=== PATIENT | male | born 1995 | race Caucasian/White ===

== ENCOUNTER 2018-03-01 16:09 | Emergency (ER) | payer BC ==
[2018-03-01 16:23] VITALS: BP 110/56
--- NOTE | 2018-03-01 16:24 | EDM.PDOC ---
ED HPI GENERAL MEDICAL PROBLEM - General Chief Complaint: Respiratory Problem Stated Complaint: COUGH,STUFFY NOSE Time Seen by Provider: 03/01/18 16:17 - History of Present Illness INITIAL COMMENTS - FREE TEXT/NARRATIVE: HISTORY AND PHYSICAL: History of present illness: Patient 22-year-old white male gentleman with concern of cough congestion cold symptoms over the last week he's concerned about possible influenza utters no fever chills nausea vomiting he is a smoker. Review of systems: As per history of present illness and below otherwise all systems reviewed and negative. Past medical history: As per history of present illness and as reviewed below otherwise noncontributory. Surgical history: As per history of present illness and as reviewed below otherwise noncontributory. Social history: No reported history of drug or alcohol abuse. Family history: As per history of present illness and as reviewed below otherwise noncontributory. Physical exam: HEENT: Atraumatic, normocephalic, pupils reactive, negative for conjunctival pallor or scleral icterus, mucous membranes moist, throat clear, neck supple, nontender, trachea midline. Lungs: Clear to auscultation, breath sounds equal bilaterally, chest nontender. Heart: S1S2, regular, negative for clicks, rubs, or JVD. Abdomen: Soft, nondistended, nontender. Negative for masses or hepatosplenomegaly. Negative for costovertebral tenderness. Pelvis: Stable nontender. Genitourinary: Deferred. Rectal: Deferred. Extremities: Atraumatic, negative for cords or calf pain. Neurovascular unremarkable. Neuro: Awake, alert, oriented. Cranial nerves II through XII unremarkable. Cerebellum unremarkable. Motor and sensory unremarkable throughout. Exam nonfocal. Diagnostics: Influenza screen Therapeutics: None Impression: #1 viral syndrome Definitive disposition and diagnosis as appropriate pending reevaluation and review of above. - Related Data Allergies Allergy/AdvReac Type Severity Reaction Status Date / Time No Known Allergies Allergy Verified 03/01/18 16:21 Home Meds: Home Meds . [No Known Home Meds] 03/01/18 [History] Past Medical History - Past Health History Medical/Surgical History: Denies Medical/Surgical History HEENT History: Reports: None Cardiovascular History: Reports: None Respiratory History: Reports: None Gastrointestinal History: Reports: None Genitourinary History: Reports: None Musculoskeletal History: Reports: None Neurological History: Reports: None Psychiatric History: Reports: None Endocrine/Metabolic History: Reports: None Hematologic History: Reports: None Immunologic History: Reports: None Oncologic (Cancer) History: Reports: None Dermatologic History: Reports: None - Infectious Disease History Infectious Disease History: Reports: None - Past Surgical History Head Surgeries/Procedures: Reports: None Social & Family History - Family History Family Medical History: Noncontributory - Caffeine Use Caffeine Use: Reports: Coffee, Energy Drinks ED ROS GENERAL - Review of Systems Review Of Systems: ROS reveals no pertinent complaints other than HPI. ED EXAM, GENERAL - Physical Exam Exam: See Below (The dictation) Course - Orders/Labs/Meds Orders: Active Orders 24 hr Category Date Time Status INFLUENZA A+B AG SCREEN [RM] Stat Lab 03/01/18 16:19 Ordered Departure - Departure Time of Disposition: 16:23 Disposition: Home, Self-Care 01 Condition: Good Clinical Impression: Viral syndrome - Discharge Information Additional Instructions: The following information is given to patients seen in the emergency department who are being discharged to home. This information is to outline your options for follow-up care. We provide all patients seen in our emergency department with a follow-up referral. The need for follow-up, as well as the timing and circumstances, are variable depending upon the specifics of your emergency department visit. If you don't have a primary care physician on staff, we will provide you with a referral. We always advise you to contact your personal physician following an emergency department visit to inform them of the circumstance of the visit and for follow-up with them and/or the need for any referrals to a consulting specialist. The emergency department will also refer you to a specialist when appropriate. This referral assures that you have the opportunity for followup care with a specialist. All of these measure are taken in an effort to provide you with optimal care, which includes your followup. Under all circumstances we always encourage you to contact your private physician who remains a resource for coordinating your care. When calling for followup care, please make the office aware that this follow-up is from your recent emergency room visit. If for any reason you are refused follow-up, please contact the [facility] emergency department at and asked to speak to the emergency department charge nurse. [facility] [address] [place] [id number] Push fluids Motrin/Tylenol as directed follow up primary medical doctor in our clinic above as needed as discussed and return as needed as discussed - My Orders Last 24 Hours: My Active Orders 03/01/18 16:19 INFLUENZA A+B AG SCREEN [RM] Stat - Assessment/Plan Last 24 Hours: My Active Orders 03/01/18 16:19 INFLUENZA A+B AG SCREEN [RM] Stat
== END 2018-03-01 17:33 | disposition home or self-care (01) ==
LOC: MW.ED 16:09
DX: B34.9 Viral infection, unspecified (principal)
CPT/HCPCS: 87804; 99282; 99283

== ENCOUNTER 2018-09-24 16:53 | Emergency (ER) | payer SELFPAY ==
[2018-09-24 17:16] VITALS: BP 114/65
[2018-09-24] MEDS ORDERED: Ketorolac 60 MG/2 ML SDV IM ONE (17:18)
--- NOTE | 2018-09-24 17:21 | EDM.PDOC ---
ED HPI GENERAL MEDICAL PROBLEM - General Chief Complaint: Headache Stated Complaint: HEADACHE Time Seen by Provider: 09/24/18 17:14 - History of Present Illness INITIAL COMMENTS - FREE TEXT/NARRATIVE: HISTORY AND PHYSICAL: History of present illness: Patient's 22-year-old white male presents with concern headache he denies trauma fever chills neck stiffness or pain visual disturbance or other complaints. Review of systems: As per history of present illness and below otherwise all systems reviewed and negative. Past medical history: As per history of present illness and as reviewed below otherwise noncontributory. Surgical history: As per history of present illness and as reviewed below otherwise noncontributory. Social history: No reported history of drug or alcohol abuse. Family history: As per history of present illness and as reviewed below otherwise noncontributory. Physical exam: HEENT: Atraumatic, normocephalic, pupils reactive, negative for conjunctival pallor or scleral icterus, mucous membranes moist, throat clear, neck supple, nontender, trachea midline. Lungs: Clear to auscultation, breath sounds equal bilaterally, chest nontender. Heart: S1S2, regular, negative for clicks, rubs, or JVD. Abdomen: Soft, nondistended, nontender. Negative for masses or hepatosplenomegaly. Negative for costovertebral tenderness. Pelvis: Stable nontender. Genitourinary: Deferred. Rectal: Deferred. Extremities: Atraumatic, negative for cords or calf pain. Neurovascular unremarkable. Neuro: Awake, alert, oriented. Cranial nerves II through XII unremarkable. Cerebellum unremarkable. Motor and sensory unremarkable throughout. Exam nonfocal. Diagnostics: None Therapeutics: Toradol 60 mg IM Impression: #1 cephalgia Definitive disposition and diagnosis as appropriate pending reevaluation and review of above. Headache Pain Score (Numeric/FACES): 9 - Related Data Allergies Allergy/AdvReac Type Severity Reaction Status Date / Time No Known Allergies Allergy Verified 09/24/18 17:12 Home Meds: Home Meds . [No Known Home Meds] 03/01/18 [History] Past Medical History - Past Health History Medical/Surgical History: Denies Medical/Surgical History HEENT History: Reports: None Cardiovascular History: Reports: None Respiratory History: Reports: None Gastrointestinal History: Reports: None Genitourinary History: Reports: None Musculoskeletal History: Reports: None Neurological History: Reports: None Psychiatric History: Reports: None Endocrine/Metabolic History: Reports: None Hematologic History: Reports: None Immunologic History: Reports: None Oncologic (Cancer) History: Reports: None Dermatologic History: Reports: None - Infectious Disease History Infectious Disease History: Reports: None - Past Surgical History Head Surgeries/Procedures: Reports: None Social & Family History - Family History Family Medical History: Noncontributory - Tobacco Use Smoking Status *Q: Current Every Day Smoker Years of Tobacco use: 5 Packs/Tins Daily: 1 - Caffeine Use Caffeine Use: Reports: Coffee, Soda - Recreational Drug Use Recreational Drug Use: No ED ROS GENERAL - Review of Systems Review Of Systems: ROS reveals no pertinent complaints other than HPI. ED EXAM, GENERAL - Physical Exam Exam: See Below (See dictation) Course - Vital Signs Last Recorded V/S: Last Vital Signs Temp Pulse 84 09/24/18 17:12 Resp 17 09/24/18 17:12 BP 114/65 09/24/18 17:12 Pulse Ox 96 09/24/18 17:12 - Orders/Labs/Meds Orders: Active Orders 24 hr Category Date Time Status Ketorolac [Toradol] Med 09/24/18 17:18 Once 60 mg IM ONETIME ONE Departure - Departure Time of Disposition: 17:19 Disposition: Home, Self-Care 01 Condition: Good Clinical Impression: Cephalgia - Discharge Information Referrals: PCP,Unknown [Primary Care Provider] - Additional Instructions: The following information is given to patients seen in the emergency department who are being discharged to home. This information is to outline your options for follow-up care. We provide all patients seen in our emergency department with a follow-up referral. The need for follow-up, as well as the timing and circumstances, are variable depending upon the specifics of your emergency department visit. If you don't have a primary care physician on staff, we will provide you with a referral. We always advise you to contact your personal physician following an emergency department visit to inform them of the circumstance of the visit and for follow-up with them and/or the need for any referrals to a consulting specialist. The emergency department will also refer you to a specialist when appropriate. This referral assures that you have the opportunity for followup care with a specialist. All of these measure are taken in an effort to provide you with optimal care, which includes your followup. Under all circumstances we always encourage you to contact your private physician who remains a resource for coordinating your care. When calling for followup care, please make the office aware that this follow-up is from your recent emergency room visit. If for any reason you are refused follow-up, please contact the [facility] emergency department at and asked to speak to the emergency department charge nurse. [facility] [address] [place] [phone] Follow-up primary care above. Motrin/ Tylenol as directed return as needed as discussed - My Orders Last 24 Hours: My Active Orders 09/24/18 17:18 Ketorolac [Toradol] 60 mg IM ONETIME ONE - Assessment/Plan Last 24 Hours: My Active Orders 09/24/18 17:18 Ketorolac [Toradol] 60 mg IM ONETIME ONE
== END 2018-09-24 18:04 | disposition home or self-care (01) ==
LOC: MW.ED 16:53
DX: R51 Headache (principal); F17.210 Nicotine dependence, cigarettes, uncomplicated
CPT/HCPCS: 96372; 99283; J1885

== ENCOUNTER 2018-11-27 20:39 | Emergency (ER) | payer SELFPAY ==
[2018-11-27 20:50] VITALS: BP 129/74; PULSE 77
== END 2018-11-27 22:00 | disposition left against medical advice (07) ==
LOC: MW.ED 20:39
DX: Z53.21 Procedure and treatment not carried out due to patient leaving prior to being seen by health care provider (principal)

== ENCOUNTER 2019-01-15 15:22 | Emergency (ER) | payer SELFPAY ==
[2019-01-15 15:28] VITALS: BP 118/72; PULSE 74
--- NOTE | 2019-01-15 15:54 | EDM.PDOC ---
ED HPI GENERAL MEDICAL PROBLEM - General Chief Complaint: ENT Problem Stated Complaint: TOOTHACHE Time Seen by Provider: 01/15/19 15:23 Source of Information: Reports: Patient History Limitations: Reports: No Limitations - History of Present Illness INITIAL COMMENTS - FREE TEXT/NARRATIVE: Since reporting dental pain the patient states that he has a "bad tooth" in the left upper and left lower pain started at midnight. Pain is worse with cold better with warm and pressure. He has an appointment with the dentist on . He does not chew but he does smoke cigarettes. No fever swollowing problems or swelling. Is otherwise healthy without chronic medical problems. left sided dental pain Pain Score (Numeric/FACES): 8 - Related Data Allergies Allergy/AdvReac Type Severity Reaction Status Date / Time No Known Allergies Allergy Verified 01/15/19 15:28 Home Meds: Home Meds Clindamycin HCl 1 cap PO TID #30 capsule 01/15/19 [Rx] Diclofenac Sodium [Voltaren] 75 mg PO BIDMEALS PRN #20 tab.ec 01/15/19 [Rx] Past Medical History - Past Health History Medical/Surgical History: Denies Medical/Surgical History HEENT History: Reports: None Cardiovascular History: Reports: None Respiratory History: Reports: None Gastrointestinal History: Reports: None Genitourinary History: Reports: None Musculoskeletal History: Reports: None Neurological History: Reports: None Psychiatric History: Reports: None Endocrine/Metabolic History: Reports: None Hematologic History: Reports: None Immunologic History: Reports: None Oncologic (Cancer) History: Reports: None Dermatologic History: Reports: None - Infectious Disease History Infectious Disease History: Reports: None - Past Surgical History Head Surgeries/Procedures: Reports: None Social & Family History - Family History Family Medical History: Noncontributory - Tobacco Use Smoking Status *Q: Heavy Tobacco Smoker Years of Tobacco use: 16 Packs/Tins Daily: 0.4 - Caffeine Use Caffeine Use: Reports: Coffee - Recreational Drug Use Recreational Drug Use: No ED ROS ENT - Review of Systems Review Of Systems: Comprehensive ROS is negative, except as noted in HPI. ED EXAM, ENT - Physical Exam Exam: See Below Exam Limited By: No Limitations General Appearance: Alert, No Apparent Distress Ears: Normal External Exam Nose: Normal Inspection Mouth/Throat: Normal Inspection, Other (Third molar left lower and left upper broken off and decayed to the gum line no associated swelling) Head: Atraumatic, Normocephalic Neck: Normal Inspection Respiratory/Chest: No Respiratory Distress, Lungs Clear, Normal Breath Sounds Cardiovascular: Normal Peripheral Pulses, Regular Rate, Rhythm, No Murmur Back: Normal Inspection Extremities: Normal Inspection Neurological: Alert, Oriented Skin: Warm, Dry, Intact, Normal Color, No Rash Lymphatic: No Adenopathy Course - Vital Signs Last Recorded V/S: Last Vital Signs Temp 36.4 C 01/15/19 15: Pulse 74 01/15/19 15:26 Resp 18 01/15/19 15: BP 118/72 01/15/19 15: Pulse Ox 98 01/15/19 15:26 Departure - Departure Time of Disposition: 15:54 Disposition: Home, Self-Care 01 Condition: Good Clinical Impression: Broken tooth Qualifiers: Encounter type: initial encounter - Discharge Information Referrals: PCP,None [Primary Care Provider] - Additional Instructions: The following information is given to patients seen in the emergency department who are being discharged to home. This information is to outline your options for follow-up care. We provide all patients seen in our emergency department with a follow-up referral. The need for follow-up, as well as the timing and circumstances, are variable depending upon the specifics of your emergency department visit. If you don't have a primary care physician on staff, we will provide you with a referral. We always advise you to contact your personal physician following an emergency department visit to inform them of the circumstance of the visit and for follow-up with them and/or the need for any referrals to a consulting specialist. The emergency department will also refer you to a specialist when appropriate. This referral assures that you have the opportunity for follow-up care with a specialist. All of these measure are taken in an effort to provide you with optimal care, which includes your follow-up. Under all circumstances we always encourage you to contact your private physician who remains a resource for coordinating your care. When calling for follow-up care, please make the office aware that this follow-up is from your recent emergency room visit. If for any reason you are refused follow-up, please contact the [facility] Emergency Department at and asked to speak to the emergency department charge nurse. 1. Follow-up with dentist on as previously scheduled 2. Dental balls: Place 1 over affected tooth and gently bite down 10 minutes every 2 hours 3. Take your antibiotic 3 times daily 4. Diclofenac twice daily as needed for pain 5. Return promptly for increased swelling, fever or elevated heart rate Sepsis Event Note - Evaluation Sepsis Screening Result: No Definite Risk - Focused Exam Vital Signs: Vital Signs Temp Pulse Resp BP Pulse Ox 01/15/19 15:26 36.4 C 74 18 118/72 98 Date Exam was Performed: 01/15/19 Time Exam was Performed: 15:48
[2019-01-15] MEDS: Lidocaine 2% Viscous Solution 15 ML Cup PO ONE (16:13)
[2019-01-15] MEDS: Ketorolac 60 MG/2 ML SDV IM ONE (16:14)
[2019-01-15] MEDS: Benzocaine 20% Topical Spray UD MUCMEM ONE (16:14)
== END 2019-01-15 16:48 | disposition home or self-care (01) ==
LOC: MW.ED 15:22
DX: K03.81 Cracked tooth (principal); K02.9 Dental caries, unspecified; F17.210 Nicotine dependence, cigarettes, uncomplicated
CPT/HCPCS: 96372; 99282; A9270; J1885; 99283

== ENCOUNTER 2019-10-08 21:52 | Emergency (ER) | payer SELFPAY ==
[2019-10-08 22:06] VITALS: BP 132/58; PULSE 98
[2019-10-08] MEDS ORDERED: Diazepam 5 MG Tab PO ONE (22:10)
[2019-10-08] MEDS ORDERED: Ketorolac 30 MG/ML SDV IM ONE (22:10)
--- NOTE | 2019-10-08 22:27 | EDM.PDOC ---
ED HPI GENERAL MEDICAL PROBLEM - General Chief Complaint: Back Pain or Injury Stated Complaint: BACK PAIN Time Seen by Provider: 10/08/19 21:53 - History of Present Illness INITIAL COMMENTS - FREE TEXT/NARRATIVE: 23-year-old male presents with lower back pain with some radiation down the left leg. The patient was working on his bosses car he was pulling on something with a twisting motion in his lower back and had a sudden severe sharp pain in the lower back in the midline and radiating somewhat across either side but more severe on the left side with some radiation into the left leg the pain worsens with attempted ambulation he is able to ambulate but it hurts significantly he does not have trouble with weakness of his legs he denies urinary or bowel incontinence no saddle anesthesia or paresthesia. The patient has a history of a similar injury 1 year ago that he presented here for he states that he was not offered follow-up or other medications he says that it took about 2 weeks for him to get back on his feet. No other medical problems. L lower back Pain Score (Numeric/FACES): 6 - Related Data Allergies Allergy/AdvReac Type Severity Reaction Status Date / Time No Known Allergies Allergy Verified 10/08/19 22:04 Home Meds: Home Meds Ibuprofen 600 mg PO TID 5 Days #15 tablet 10/08/19 [Rx] diazePAM [Valium.] 5 mg PO BEDTIME PRN 5 Days #5 tab 10/08/19 [Rx] Past Medical History - Past Health History Medical/Surgical History: Denies Medical/Surgical History HEENT History: Reports: None Cardiovascular History: Reports: None Respiratory History: Reports: None Gastrointestinal History: Reports: None Genitourinary History: Reports: None Musculoskeletal History: Reports: None Neurological History: Reports: None Psychiatric History: Reports: None Endocrine/Metabolic History: Reports: None Hematologic History: Reports: None Immunologic History: Reports: None Oncologic (Cancer) History: Reports: None Dermatologic History: Reports: None - Infectious Disease History Infectious Disease History: Reports: None - Past Surgical History Head Surgeries/Procedures: Reports: None Social & Family History - Family History Family Medical History: Noncontributory - Caffeine Use Caffeine Use: Reports: Coffee ED ROS GENERAL - Review of Systems Review Of Systems: See Below Free Text/Narrative/Comment: General: No fever. Skin: No rash. Gastrointestinal: No bowel incontinence Urinary: No urinary incontinence Musculoskeletal: Per HPI Neurologic: No lower extremity weakness ED EXAM, GENERAL - Physical Exam Exam: See Below Free Text/Narrative:: General Appearance: No acute distress, appears comfortable Skin: No rash HEENT: Normocephalic/atraumatic, sclera anicteric, mucous membranes moist Neck: Normal range of motion Back: No step-off or deformity is noted in the midline of the spine some tenderness in the right paraspinal region more significant tenderness left paraspinal region with some associated muscle spasm, no skin lesion noted in the area Musculoskeletal: No edema or tenderness Neurologic: Awake, alert, no obvious deficits, 5-5 strength in hip abduction abduction 4 out of 5 strength with hip flexion and extension these findings are true bilaterally and seem primarily pain mediated, for out of 4 strength in the left knee flexion and extension 5 out of 5 strength right knee flexion and extension 5 out of 5 strength bilateral dorsiflexion and plantarflexion Psychiatric: Appropriate, cooperative Course - Vital Signs Last Recorded V/S: Last Vital Signs Temp 97.8 F 10/08/19 22:01 Pulse 98 10/08/19 22:01 Resp 16 10/08/19 22:01 BP 132/58 L 10/08/19 22:01 Pulse Ox 97 10/08/19 22:01 - Orders/Labs/Meds Meds: Medications Discontinued Medications Generic Name Dose Route Start Last Admin Trade Name Freq PRN Reason Stop Dose Admin Diazepam 5 mg 10/08/19 22:10 10/08/19 22:17 Valium. PO 10/08/19 22:11 5 mg ONETIME ONE Administration Ketorolac Tromethamine 30 mg 10/08/19 22:10 10/08/19 22:16 Toradol IM 10/08/19 22:11 30 mg ONETIME ONE Administration Departure - Departure Time of Disposition: 22:52 Disposition: Home, Self-Care 01 Condition: Good Clinical Impression: Acute low back pain - Discharge Information *PRESCRIPTION DRUG MONITORING PROGRAM REVIEWED*: Yes *COPY OF PRESCRIPTION DRUG MONITORING REPORT IN PATIENT [place]: Not Applicable Prescriptions: Ibuprofen 600 mg PO TID 5 Days #15 tablet diazePAM [Valium.] 5 mg PO BEDTIME PRN 5 Days #5 tab PRN Reason: Muscle Spasm Instructions: Acute Back Pain, Adult Referrals: [facility] [Outside] - 1 Week Forms: ED Department Discharge Additional Instructions: Please take high-dose ibuprofen 3 times daily with food we are using it to help with pain but also to treat inflammation. Do not take any additional anti- inflammatories such as Advil or Aleve while you are taking this medicine. Please try and go about your normal life as much as you can. We know that if you lay around and have no activity will take a longer to recover. Please follow-up with the primary care clinic if your symptoms do not improve as instructed they can help you with obtaining an MRI and orthopedic surgery referral. The following information is given to patients seen in the emergency department who are being discharged to home. This information is to outline your options for follow-up care. We provide all patients seen in our emergency department with a follow-up referral. The need for follow-up, as well as the timing and circumstances, are variable depending upon the specifics of your emergency department visit. If you don't have a primary care physician on staff, we will provide you with a referral. We always advise you to contact your personal physician following an emergency department visit to inform them of the circumstance of the visit and for follow-up with them and/or the need for any referrals to a consulting specialist. The emergency department will also refer you to a specialist when appropriate. This referral assures that you have the opportunity for follow-up care with a specialist. All of these measure are taken in an effort to provide you with optimal care, which includes your follow-up. Under all circumstances we always encourage you to contact your private physician who remains a resource for coordinating your care. When calling for follow-up care, please make the office aware that this follow-up is from your recent emergency room visit. If for any reason you are refused follow-up, please contact the [facility] Emergency Department at and asked to speak to the emergency department charge nurse. Sepsis Event Note (ED) - Evaluation Sepsis Screening Result: No Definite Risk - Focused Exam Vital Signs: Vital Signs Temp Pulse Resp BP Pulse Ox 10/08/19 22:01 97.8 F 98 16 132/58 L 97 - Assessment/Plan Assessment:: 23-year-old male presenting with signs and symptoms consistent with acute musculoskeletal lower back pain nothing that would suggest aortic dissection AAA renal colic or intra-abdominal process. No findings of cord compression or cauda equina Toradol and Valium given for symptoms will reassess. Patient is not driving home. Will trial 5 days of high-dose NSAIDs for symptomatic relief and will have patient follow-up with the primary care clinic. If symptoms do not improve he may need an MRI at that time but he does not meet criteria for emergent MRI. Patient did not fall or have any blow to the back no indication for low back x-ray Patient had complete relief from the above medications discharged with follow- up. Return precautions discussed and understood.
== END 2019-10-08 22:54 | disposition home or self-care (01) ==
LOC: MW.ED 21:52
DX: M54.5 Low back pain (principal)
CPT/HCPCS: 96372; 99283; A9270; J1885

== ENCOUNTER 2019-12-14 03:24 | Emergency (ER) | payer BC ==
--- NOTE | 2019-12-14 03:43 | EDM.PDOC ---
ED HPI GENERAL MEDICAL PROBLEM - General Chief Complaint: Respiratory Problem Stated Complaint: COUGHING Time Seen by Provider: 12/14/19 03:40 - History of Present Illness INITIAL COMMENTS - FREE TEXT/NARRATIVE: HISTORY AND PHYSICAL: History of present illness: This is a 23-year-old healthy gentleman who presents ER today requesting a test for coronavirus. Patient reports that he has had some burning in his chest and loss of taste. Patient reports that all of his at this time is bleach in his mouth. Patient denies any recent fevers, shakes, chills, nausea, vomiting, diarrhea, dysuria, frequency, urgency. Patient reports nonproductive cough. Patient denies any shortness of breath. Patient has any history of hypertension, diabetes, liver, lung, kidney problems. Patient denies any tobacco, alcohol, drugs. Patient denies any abdominal or chest surgeries. Patient has no known drug allergies. Review of systems: As per history of present illness and below otherwise all systems reviewed and negative. Past medical history: As per history of present illness and as reviewed below otherwise noncontributory. Surgical history: As per history of present illness and as reviewed below otherwise noncontributory. Social history: No reported history of drug or alcohol abuse. Family history: As per history of present illness and as reviewed below otherwise noncontributory. Physical exam: Constitutional: Patient is oriented to person, place, and time. Appears well- developed and well-nourished. No distress. HEENT: Moist mucous membranes Head: Normocephalic and atraumatic Eyes: Right eye exhibits no discharge. Left eye exhibits no discharge. No scleral icterus Neck: Normal range of motion. No tracheal deviation present. Cardiovascular: Normal rate and regular rhythm. Pulmonary: Effort normal, no respiratory distress. Abdominal: No distention Musculoskeletal: Normal range of motion Neurologic: Alert and oriented to person, place and time. Skin: [place], warm and dry. Psychiatric: Normal mood and affect. Behavior is normal. Judgment and thought content normal. Nursing note and vital signs have been reviewed Diagnostics: Covid test: Assessment and plan: 23-year-old gentleman presents ER today requesting a test for coronavirus secondary to multiple vague complaints that could be consistent with coronavirus. We will check his coronavirus test and reassess. Reassessment at the time of disposition demonstrates that the patient is in no acute distress. The patient has remained stable throughout the entire ED visit and is without objective evidence for acute process requiring urgent intervention or hospitalization. The patient is stable for discharge, counseling is provided as documented above, discussed symptomatic treatment and specific conditions for return. I have spoken with the patient/caregiver and discussed todays findings, in addition to providing specific details for the plan of care. Questions are answered and there is agreement with the plan. Definitive disposition and diagnosis as appropriate pending reevaluation and review of above. Headache Pain Score (Numeric/FACES): 3 - Related Data Allergies Allergy/AdvReac Type Severity Reaction Status Date / Time No Known Allergies Allergy Verified 12/14/19 03:41 Home Meds: Home Meds Ibuprofen 600 mg PO TID 5 Days #15 tablet 10/08/19 [Rx] diazePAM [Valium.] 5 mg PO BEDTIME PRN 5 Days #5 tab 10/08/19 [Rx] Past Medical History - Past Health History Medical/Surgical History: Denies Medical/Surgical History HEENT History: Reports: None Cardiovascular History: Reports: None Respiratory History: Reports: None Gastrointestinal History: Reports: None Genitourinary History: Reports: None Musculoskeletal History: Reports: None Neurological History: Reports: None Psychiatric History: Reports: None Endocrine/Metabolic History: Reports: None Hematologic History: Reports: None Immunologic History: Reports: None Oncologic (Cancer) History: Reports: None Dermatologic History: Reports: None - Infectious Disease History Infectious Disease History: Reports: None - Past Surgical History Head Surgeries/Procedures: Reports: None Social & Family History - Family History Family Medical History: Noncontributory - Caffeine Use Caffeine Use: Reports: Coffee ED ROS GENERAL - Review of Systems Review Of Systems: See Below ED EXAM, GENERAL - Physical Exam Exam: See Below Course - Vital Signs Last Recorded V/S: Last Vital Signs Temp 98.4 F 12/14/19 03:36 Pulse 70 12/14/19 04:43 Resp 16 12/14/19 04:43 BP 104/67 12/14/19 04:43 Pulse Ox 98 12/14/19 04:43 - Orders/Labs/Meds Orders: Active Orders 24 hr Category Date Time Status CORONAVIRUS COVID-19 PCR PHL Stat Lab 12/14/19 03:50 Received Labs: Laboratory Tests 12/14/19 Range/Units 03:50 SARS CoV-2 RNA Rapid IVY NEGATIVE (NEGATIVE) Departure - Departure Time of Disposition: 05:13 Disposition: Home, Self-Care 01 Condition: Good Clinical Impression: Viral illness - Discharge Information Instructions: Medical Screening Exam Referrals: PCP,None [Primary Care Provider] - Forms: ED Department Discharge Additional Instructions: You were seen and evaluated in the ER today for coronavirus test. Your test here today was Negative. A second swab was done and is sent to the state lab. It takes at least 3 days for results, they will contact you only if you are positive. You may use over the counter medications to treat you symptoms. Return for any worsening symptoms otherwise follow up with your primary care provider or clinics listed below. The following information is given to patients seen in the emergency department who are being discharged to home. This information is to outline your options for follow-up care. We provide all patients seen in our emergency department with a follow-up referral. The need for follow-up, as well as the timing and circumstances, are variable depending upon the specifics of your emergency department visit. If you don't have a primary care physician on staff, we will provide you with a referral. We always advise you to contact your personal physician following an emergency department visit to inform them of the circumstance of the visit and for follow-up with them and/or the need for any referrals to a consulting specialist. The emergency department will also refer you to a specialist when appropriate. This referral assures that you have the opportunity for follow-up care with a specialist. All of these measure are taken in an effort to provide you with optimal care, which includes your follow-up. Under all circumstances we always encourage you to contact your private physician who remains a resource for coordinating your care. When calling for follow-up care, please make the office aware that this follow-up is from your recent emergency room visit. If for any reason you are refused follow-up, please contact the [facility] Emergency Department at and asked to speak to the emergency department charge nurse. Nubia Cl[facility] [address] [place] [id number] [id number] Sepsis Event Note (ED) - Evaluation Sepsis Screening Result: No Definite Risk - My Orders Last 24 Hours: My Active Orders 12/14/19 03:50 CORONAVIRUS COVID-19 PCR PHL Stat - Assessment/Plan Last 24 Hours: My Active Orders 12/14/19 03:50 CORONAVIRUS COVID-19 PCR PHL Stat
[2019-12-14 04:44] VITALS: BP 104/67; PULSE 70
== END 2019-12-14 04:28 | disposition home or self-care (01) ==
LOC: MW.ED 03:24
DX: U07.1 COVID-19 (principal)
CPT/HCPCS: 99282; 99283; U0002

== ENCOUNTER 2020-03-27 22:46 | Emergency (ER) | payer BC ==
[2020-03-27 23:04] VITALS: PULSE 76
[2020-03-27] MEDS ORDERED: Ketorolac 30 MG/ML SDV IM ONE (23:09)
[2020-03-27] MEDS ORDERED: Cyclobenzaprine 10 MG Tab PO ONE (23:09)
--- NOTE | 2020-03-27 23:32 | EDM.PDOC ---
ED HPI GENERAL MEDICAL PROBLEM - General Chief Complaint: Back Pain or Injury Stated Complaint: BACK PAIN Time Seen by Provider: 03/27/20 23:04 - History of Present Illness INITIAL COMMENTS - FREE TEXT/NARRATIVE: HISTORY AND PHYSICAL: History of present illness: This is a 23-year-old gentleman with no significant history of hypertension, diabetes, liver, lung, kidney problems who presents to the ER today complaining of pain underneath his left scapula x1 to 2 weeks. 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 Patient reports has been taking ibuprofen with minimal relief. Patient denies any recent fevers, shakes, chills, nausea, vomiting, diarrhea, dysuria, frequency, urgency, chest pain, shortness of breath, hemoptysis, calf tenderness, risk factors for DVT/PE. Patient ports pain increases with rotation of his torso or flexion and extension of his torso. Review of systems: As per history of present illness and below otherwise all systems reviewed and negative. Past medical history: As per history of present illness and as reviewed below otherwise noncontributory. Surgical history: As per history of present illness and as reviewed below otherwise noncontributory. Social history: No reported history of drug or alcohol abuse. Family history: As per history of present illness and as reviewed below otherwise noncontributory. Physical exam: Constitutional: Patient is oriented to person, place, and time. Appears well- developed and well-nourished. No distress. HEENT: Moist mucous membranes Head: Normocephalic and atraumatic Eyes: Right eye exhibits no discharge. Left eye exhibits no discharge. No scleral icterus Neck: Normal range of motion. No tracheal deviation present. Cardiovascular: Normal rate and regular rhythm. Pulmonary: Effort normal, no respiratory distress. Abdominal: No distention Musculoskeletal: Normal range of motion Neurologic: Alert and oriented to person, place and time. Skin: [place], warm and dry. Psychiatric: Normal mood and affect. Behavior is normal. Judgment and thought content normal. Nursing note and vital signs have been reviewed This patient was seen and evaluated during the 2019 SARS-CoV-2 novel coronavirus pandemic period. Community viral transmission is ongoing at time of this encounter and the emergency department is operating under pandemic response procedures. Patient's ER physical exam is significant for tenderness to palpation underneath his left scapula. Pain is reproducible with movement of his left arm. Diagnostics: Chest Xray: Normal cardiac silhouette No infiltrates or effusions identified. No PTX No evidence of acute bony fracture. As interpreted by ER MD: [employer]: Toradol IM, Flexeril Assessment and plan: 24-year-old gentleman who presents ER today with reproducible back pain most likely secondary to working on the ribs and muscle strain. Patient be given a prescription for Naprosyn and Flexeril. Patient is low risk for DVT/PE by history, physical exam and symptoms. Patient be instructed to follow-up with his primary care physician for reevaluation of the pain persists for greater than a week. Definitive disposition and diagnosis as appropriate pending reevaluation and review of above. back Pain Score (Numeric/FACES): 8 - Related Data Allergies Allergy/AdvReac Type Severity Reaction Status Date / Time No Known Allergies Allergy Verified 03/27/20 22:56 Home Meds: Home Meds Cyclobenzaprine [Flexeril] 10 mg PO TID PRN #20 tab 03/27/20 [Rx] Naproxen [Naprosyn] 500 mg PO Q12HR PRN #30 tab 03/27/20 [Rx] Past Medical History - Past Health History Medical/Surgical History: Denies Medical/Surgical History HEENT History: Reports: None Cardiovascular History: Reports: None Respiratory History: Reports: None Gastrointestinal History: Reports: None Genitourinary History: Reports: None Musculoskeletal History: Reports: None Neurological History: Reports: None Psychiatric History: Reports: None Endocrine/Metabolic History: Reports: None Hematologic History: Reports: None Immunologic History: Reports: None Oncologic (Cancer) History: Reports: None Dermatologic History: Reports: None - Infectious Disease History Infectious Disease History: Reports: None - Past Surgical History Head Surgeries/Procedures: Reports: None HEENT Surgical History: Reports: Oral Surgery Social & Family History - Family History Family Medical History: No Pertinent Family History - Tobacco Use Tobacco Use Status *Q: Current Every Day Tobacco User Years of Tobacco use: 4 Packs/Tins Daily: 1 - Caffeine Use Caffeine Use: Reports: Coffee - Recreational Drug Use Recreational Drug Use: No ED ROS GENERAL - Review of Systems Review Of Systems: See Below ED EXAM, GENERAL - Physical Exam Exam: See Below Course - Vital Signs Last Recorded V/S: Last Vital Signs Temp 98.5 F 03/27/20 22:57 Pulse 76 03/27/20 22:57 Resp 19 03/27/20 22:57 BP 121/67 03/27/20 22:57 Pulse Ox 97 03/27/20 22:57 - Orders/Labs/Meds Orders: Active Orders 24 hr Category Date Time Status Chest 2V [CR] Stat Exams 03/27/20 23:09 Taken Meds: Medications Discontinued Medications Generic Name Dose Route Start Last Admin Trade Name Izabella PRN Reason Stop Dose Admin Cyclobenzaprine HCl 10 mg 03/27/20 23:09 Flexeril PO 03/27/20 23:10 ONETIME ONE Ketorolac Tromethamine 30 mg 03/27/20 23:09 Toradol IM 03/27/20 23:10 ONETIME ONE Departure - Departure Time of Disposition: 23:30 Disposition: Home, Self-Care 01 Condition: Good Clinical Impression: Musculoskeletal back pain - Discharge Information Instructions: Muscle Strain, [id number] Referrals: PCP,None [Primary Care Provider] - Additional Instructions: Your seen and evaluated in the ER today secondary to pain to the your left upper back around your shoulder blade. This is most likely secondary to musculoskeletal pain. You will be given a prescription for Naprosyn as well as Flexeril. Please use that as directed. Please make an appointment to see your family doctor within 1 to 2 weeks for reevaluation. The following information is given to patients seen in the emergency department who are being discharged to home. This information is to outline your options for follow-up care. We provide all patients seen in our emergency department with a follow-up referral. The need for follow-up, as well as the timing and circumstances, are variable depending upon the specifics of your emergency department visit. If you don't have a primary care physician on staff, we will provide you with a referral. We always advise you to contact your personal physician following an emergency department visit to inform them of the circumstance of the visit and for follow-up with them and/or the need for any referrals to a consulting specialist. The emergency department will also refer you to a specialist when appropriate. This referral assures that you have the opportunity for follow-up care with a specialist. All of these measure are taken in an effort to provide you with optimal care, which includes your follow-up. Under all circumstances we always encourage you to contact your private physician who remains a resource for coordinating your care. When calling for follow-up care, please make the office aware that this follow-up is from your recent emergency room visit. If for any reason you are refused follow-up, please contact the [facility] Emergency Department at and asked to speak to the emergency department charge nurse. [facility] [address] [place] [id number] [facility] [address] [place] [id number] Sepsis Event Note (ED) - Evaluation Sepsis Screening Result: No Definite Risk - Focused Exam Vital Signs: Vital Signs Temp Pulse Resp BP Pulse Ox 03/27/20 22:57 98.5 F 76 19 121/67 97 - My Orders Last 24 Hours: My Active Orders 03/27/20 23:09 Chest 2V [CR] Stat - Assessment/Plan Last 24 Hours: My Active Orders 03/27/20 23:09 Chest 2V [CR] Stat
--- NOTE | 2020-03-27 23:34 | CR ---
INDICATION: Left-sided back pain TECHNIQUE: Chest 2 views. COMPARISON: None FINDINGS: Cardiovascular and mediastinum: Heart size and vasculature are normal in caliber and appearance. Mediastinum is within normal limits. Lungs and pleural spaces: Lungs are clear. No sign of infiltrate or mass. No sign of pleural effusion. No pneumothorax. Bones and soft tissues: No significant findings. IMPRESSION: No sign of acute abnormality. Dictated by Arlet Farr MD @ Mar 27 2020 11:32PM Signed by Dr. Arlet Farr @ Mar 27 2020 11:34PM
[2020-03-28 00:19] VITALS: BP 116/68
== END 2020-03-27 23:48 | disposition home or self-care (01) ==
LOC: MW.ED 22:46
DX: M54.6 Pain in thoracic spine (principal); E11.9 Type 2 diabetes mellitus without complications; I10 Essential (primary) hypertension; Z72.0 Tobacco use
CPT/HCPCS: 71046; 96372; 99283; A9270; J1885

== ENCOUNTER 2021-06-06 00:39 | Emergency (ER) | payer BC ==
[2021-06-06] MEDS ORDERED: Dexamethasone 10 MG/ML SDV IVPUSH ONE (01:05)
[2021-06-06] MEDS ORDERED: Ketorolac 30 MG/ML SDV IVPUSH ONE (01:05)
[2021-06-06 01:50] LABS: BLOOD UREA NITROGEN,BUN 17 mg/dL (7.0-18.0); CHLORIDE,CL 101 mmol/L (98-107); GLUCOSE RANDOM 99 mg/dL (74-106); SODIUM,NA 135 mmol/L (136-148)
[2021-06-06] MEDS ORDERED: Iopamidol 755 MG/ML 500 ML Multipack Bottle IVPUSH ONE (01:54)
[2021-06-06] MEDS ORDERED: Amoxicillin/Clavulanate K 875-125 MG Tab PO STA (03:29)
[2021-06-06 03:46] VITALS: BP 113/74; PULSE 78
== END 2021-06-06 03:41 | disposition home or self-care (01) ==
LOC: MW.ED 00:39
DX: K11.21 Acute sialoadenitis (principal)
CPT/HCPCS: 36415; 70491; 80053; 83605; 85025; 85610; 96374; 96375; 99283; A9270; J1100; J1885; Q9967

== ENCOUNTER 2022-04-19 10:33 | Emergency (ER) | payer BC, OTHER ==
[2022-04-19 10:40] VITALS: BP 149/73
[2022-04-19] MEDS ORDERED: Lidocaine 1% PF 2 ML SDV INJECT ONE (10:43)
[2022-04-19 11:22] VITALS: PULSE 68
== END 2022-04-19 11:22 | disposition home or self-care (01) ==
LOC: MW.ED 10:33
DX: S61.512A Laceration without foreign body of left wrist, initial encounter (principal); W22.8XXA Striking against or struck by other objects, initial encounter
CPT/HCPCS: 12001; 99282; J3490

== ENCOUNTER 2022-04-27 12:11 | Emergency (ER) | payer SELFPAY | END 2022-04-27 12:52 | disposition left against medical advice (07) | LOC: MW.ED 12:11 | DX: Z53.21 Procedure and treatment not carried out due to patient leaving prior to being seen by health care provider (principal) ==

== ENCOUNTER 2023-04-24 10:22 | Day surgery (SDC) | payer BC ==
[2023-04-24] MEDS ORDERED: Lidocaine 2% 5 ML SDV ONE (10:30)
[2023-04-24] MEDS ORDERED: Propofol 200 MG/20 ML SDV ONE (10:30)
[2023-04-24] MEDS ORDERED: fentaNYL 100 MCG/2 ML SDV ONE (10:30)
[2023-04-24] MEDS: Lactated Ringers 1,000 ML IV SCH (10:40)
[2023-04-24] MEDS ORDERED: Lactated Ringers 1,000 ML IV SCH (11:30)
[2023-04-24 12:31] VITALS: BP 110/53; PULSE 68
== END 2023-04-24 12:05 | disposition home or self-care (01) ==
LOC: MW.SDS 10:22
PROVIDERS: ATTEND Surgery
DX: K62.5 Hemorrhage of anus and rectum (principal); L29.0 Pruritus ani; K60.2 Anal fissure, unspecified; J40 Bronchitis, not specified as acute or chronic; M54.16 Radiculopathy, lumbar region; Z87.891 Personal history of nicotine dependence
CPT/HCPCS: 45378; J2704; J3010; J7120; J3490

== ENCOUNTER 2024-02-10 00:47 | Emergency (ER) | payer BC ==
[2024-02-10] MEDS: Acetaminophen 500 MG Tab PO ONE (01:37)
[2024-02-10] MEDS: Benzocaine 20% Topical Spray UD MUCMEM ONE (01:37)
[2024-02-10] MEDS: Lidocaine 2% Viscous Solution 15 ML UD PO ONE (01:37)
[2024-02-10] MEDS: Ketorolac 30 MG/ML SDV IM ONE (01:37)
[2024-02-10 01:38] VITALS: BP 126/82; PULSE 60
== END 2024-02-10 01:45 | disposition home or self-care (01) ==
LOC: MW.ED 00:47
DX: K02.9 Dental caries, unspecified (principal); Z79.899 Other long term (current) drug therapy
CPT/HCPCS: 96372; 99282; A9270; J1885

== ENCOUNTER 2024-03-18 21:25 | Emergency (ER) | payer BC ==
[2024-03-18 21:53] VITALS: BP 125/77
[2024-03-19] MEDS: Acetaminophen 500 MG Tab PO ONE (00:06)
[2024-03-19] MEDS: Ibuprofen 600 MG Tab PO ONE (00:06)
[2024-03-19 00:56] LABS: APPEARANCE,URINE CLEAR; BILIRUBIN,URINE NEGATIVE (NEGATIVE); COLOR,URINE YELLOW; GLUCOSE,URINE NEGATIVE (NEGATIVE); KETONES,URINE NEGATIVE (NEGATIVE); LEUKOCYTE ESTERASE,URINE NEGATIVE (NEGATIVE); NITRITE,URINE NEGATIVE (NEGATIVE); OCCULT BLOOD,URINE NEGATIVE (NEGATIVE); PROTEIN,URINE NEGATIVE (NEGATIVE); UROBILINOGEN,URINE 0.2 EU/dL (<2.0)
[2024-03-19] MEDS ORDERED: Sodium Chloride 0.9% 2.5 ML Syringe FLUSH PRN (01:18)
[2024-03-19] MEDS ORDERED: Sodium Chloride 0.9% 10 ML Syringe FLUSH PRN (01:18)
[2024-03-19] MEDS: Sodium Chloride 0.9% 1,000 ML IV ONE (02:41)
[2024-03-19] MEDS: cefTRIAXone 2 GM in Sodium Chloride 0.9% 50 ML IV ONE (02:41)
[2024-03-19] MEDS: Ketorolac 30 MG/ML SDV IVPUSH ONE (02:41)
[2024-03-19 02:51] LABS: BASOPHILS ABSOLUTE AUTO 0.04 K/uL (0.00-0.20); BASOPHILS PERCENT AUTO 0.8 % (0.0-1.0); EOSINOPHILS ABSOLUTE AUTO 0.04 K/uL (0.00-0.45); EOSINOPHILS PERCENT AUTO 0.8 % (0.0-6.0); HEMOGLOBIN 14.5 g/dL (14.0-18.0); IMMATURE GRAN ABSOLUTE AUTO 0.01 K/uL (0.00-0.05); IMMATURE GRAN PERCENT AUTO 0.2 % (0.0-0.4); LYMPHOCYTES ABSOLUTE AUTO 1.32 K/uL (1.00-4.80); LYMPHOCYTES PERCENT AUTO 24.9 % (24.0-44.0); MEAN CORPUSCULAR HEMOGLOBIN 31.9 pg (28.0-32.0); MEAN CORPUSCULAR HGB CONC 36.3 g/dL (32.0-36.0); MEAN CORPUSCULAR VOLUME 87.9 fL (83.0-99.0); MEAN PLATELET VOLUME 9.7 fL (9.4-12.4); MONOCYTES ABSOLUTE AUTO 0.65 K/uL (0.00-0.80); MONOCYTES PERCENT AUTO 12.2 % (0.0-8.0); NEUTROPHILS ABSOLUTE AUTO 3.25 K/uL (1.80-7.70); NEUTROPHILS PERCENT AUTO 61.1 % (41.0-71.0); PLATELET COUNT,PLT 239 K/uL (150-400); RED BLOOD CELL COUNT 4.55 M/uL (4.52-5.90); WHITE BLOOD CELL COUNT,WBC 5.31 K/uL (3.9-11.3)
[2024-03-19 03:13] LABS: A/G RATIO 1.2 (0.9-1.6); ALBUMIN 4.2 g/dL (3.4-5.0); BILIRUBIN TOTAL 0.5 mg/dL (0.2-1.0); CALCIUM 9.1 mg/dL (8.5-10.1); CARBON DIOXIDE,CO2 26.4 mmol/L (21.0-32.0); CREATININE 1.1 mg/dL (0.8-1.3); EST CRCL DRUG DOSING (CG) 102.01 mL/min; POTASSIUM,K 4.1 mmol/L (3.5-5.1); PROTEIN TOTAL,TP 7.6 g/dL (6.4-8.2)
[2024-03-19 03:29] LABS: LACTIC ACID 0.9 mmol/L (0.4-2.0)
[2024-03-19 04:04] VITALS: PULSE 78
== END 2024-03-19 04:04 | disposition home or self-care (01) ==
LOC: MW.ED 21:25
DX: N50.812 Left testicular pain (principal); M54.50 Low back pain, unspecified; Z75.8 Other problems related to medical facilities and other health care
CPT/HCPCS: 36415; 71046; 76870; 80053; 81003; 83605; 84145; 85025; 87040; 87428; 87651; 93976; 96365; 96375; 99284; A9270; J0696; J1885; J3490; J7030; 99283

== ENCOUNTER 2024-12-13 17:53 | Emergency (ER) | payer BC ==
[2024-12-13] MEDS ORDERED: Sodium Chloride 0.9% 2.5 ML Syringe FLUSH PRN (18:48)
[2024-12-13] MEDS ORDERED: Sodium Chloride 0.9% 10 ML Syringe FLUSH PRN (18:48)
[2024-12-13] MEDS: Lactated Ringers 1,000 ML IV SCH (19:06)
[2024-12-13 19:22] LABS: BASOPHILS ABSOLUTE AUTO 0.03 K/uL (0.00-0.20); BASOPHILS PERCENT AUTO 0.4 % (0.0-1.0); EOSINOPHILS ABSOLUTE AUTO 0.00 K/uL (0.00-0.45); EOSINOPHILS PERCENT AUTO 0.0 % (0.0-6.0); IMMATURE GRAN ABSOLUTE AUTO 0.01 K/uL (0.00-0.05); IMMATURE GRAN PERCENT AUTO 0.1 % (0.0-0.4); LYMPHOCYTES ABSOLUTE AUTO 0.70 K/uL (1.00-4.80); LYMPHOCYTES PERCENT AUTO 9.0 % (24.0-44.0); MEAN PLATELET VOLUME 9.5 fL (9.4-12.4); MONOCYTES ABSOLUTE AUTO 0.51 K/uL (0.00-0.80); MONOCYTES PERCENT AUTO 6.5 % (0.0-8.0); NEUTROPHILS ABSOLUTE AUTO 6.55 K/uL (1.80-7.70); NEUTROPHILS PERCENT AUTO 84.0 % (41.0-71.0); NRBC ABSOLUTE 0.00 K/uL (0.00-0.02); NRBC PERCENT 0.0 /100WBC (0.0-0.2); PLATELET COUNT,PLT 225 K/uL (150-400); RED BLOOD CELL COUNT 4.65 M/uL (4.52-5.90); WHITE BLOOD CELL COUNT,WBC 7.80 K/uL (3.9-11.3)
[2024-12-13] MEDS: cefTRIAXone 2 GM in Water For Injection, Sterile 20 ML IVPUSH ONE (19:28)
[2024-12-13 19:50] LABS: A/G RATIO 1.4 (0.9-1.6); ALANINE AMINOTRANSFERASE,ALT 36.0 IU/L (14-63); ASPARTATE AMNIOTRANSFERASE,AST 32.0 IU/L (15-37); BILIRUBIN TOTAL 0.9 mg/dL (0.2-1.0); BLOOD UREA NITROGEN,BUN 17.0 mg/dL (7.0-18.0); CARBON DIOXIDE,CO2 26.9 mmol/L (21.0-32.0); CHLORIDE,CL 101.0 mmol/L (98-107); CREATININE 1.1 mg/dL (0.8-1.3); EST CRCL DRUG DOSING (CG) 106.78 mL/min; GLUCOSE RANDOM 110.0 mg/dL (74-106); POTASSIUM,K 3.7 mmol/L (3.5-5.1); PROTEIN TOTAL,TP 7.9 g/dL (6.4-8.2); SODIUM,NA 139.0 mmol/L (136-148)
[2024-12-13 19:51] LABS: LACTIC ACID 0.7 mmol/L (0.4-2.0)
[2024-12-13 19:52] LABS: ESTIMATED GFR 94.0 mL/min (>60)
[2024-12-13 20:34] VITALS: BP 119/57; PULSE 110
== END 2024-12-13 20:34 | disposition home or self-care (01) ==
LOC: MW.ED 17:53
DX: J18.9 Pneumonia, unspecified organism (principal); F17.200 Nicotine dependence, unspecified, uncomplicated; Z79.899 Other long term (current) drug therapy
CPT/HCPCS: 36415; 71045; 80053; 83605; 85025; 87040; 87428; 96361; 96374; 99285; A4216; J0696; J7120; Q0144; A9270-GY